=== PATIENT | female | born 1975 | race Two or more races ===

== ENCOUNTER 2016-05-12 16:43 | Emergency (ER) | payer OTHER ==
--- NOTE | ~2016-05-12 | CR72 ---
[facility] A Service of [facility] & [facility] RADIOLOGY TEXT RESULTS PATIENT: EMA LEVIN LOCATION: [facility] : 75 UNIT #: [id number] AGE: [address]: Oneil Urbina MD SEX: F ORDER DR: [id number] [facility] [address] [place], [place] [address] [id number] MR#: [id number] Acc #: [id number] NAME: EMA LEVIN : 1975 SEX: F STUDY DATE/TIME: 05/12/2016 17:00 UNIT: [facility] ROOM: STUDY DESCRIPTION: CR Chest Single View Portable Attending Physician: Giuseppe Urbina M.D. Ordering Physician: Ed Arthur Cardozo M.D. Primary Care Physician: No Primary Care Physician MEDICAL IMAGING REPORT This report is preliminary unless electronic signature is present EXAM Portable chest. HISTORY Left shoulder pain and chest pain and vomiting and cough for 3 days. FINDINGS The cardiac size and pulmonary vascularity are within normal limits. Mild linear atelectasis in the left base has developed since 05/08/2016. The left lung apex is partly excluded. No airspace infiltrates or effusions are identified. IMPRESSION No acute findings. No evidence of active disease. Dictated by... Mark Mccray M.D. THIS IS AN ELECTRONICALLY VERIFIED REPORT Mark Mccray M.D. at 05/13/2016 5:15 PM DFL/hebert TD: 05/13/2016 08:29 JOB #: [id number] MEDICAL IMAGING REPORT Page 1 of 1 COPY
--- NOTE | ~2016-05-12 | EKG ---
PATIENT: EMA LEVIN UNIT #: [id number] Ventricular Rate: 70 BPM Atrial Rate: 70 BPM P-R Interval: 164 ms QRS Duration: 74 ms Q-T Interval: 392 ms QTC Calculation(Bezet): 423 ms P Castaner: 51 degrees Calculated R Castaner: -21 degrees Calculated T Castaner: 12 degrees Diagnosis Line: Normal sinus rhythm Diagnosis Line: Low voltage QRS Diagnosis Line: Nonspecific T wave abnormality Diagnosis Line: Abnormal ECG Diagnosis Line: When compared with ECG of 25-OCT-2011 13:29, Diagnosis Line: Nonspecific T wave abnormality now evident in Diagnosis Line: Lateral leads Diagnosis Line: Confirmed by GAYATHRI BENNETT MD ([id number]) on 05/14/2016 Diagnosis Line: 10:54:54 PM INTERPRETING MD: DONALD VICENTE
[2016-05-12 14:29] LABS: URINE SOURCE CLEAN CATCH
[2016-05-12 14:37] LABS: URINE APPEARANCE CLEAR; URINE BILIRUBIN NEG (NEG); URINE BLOOD NEG (NEG); URINE COLOR YELLOW; URINE GLUCOSE NEG (NEG); URINE KETONE NEG (NEG); URINE LEUKOCYTE ESTERASE NEG (NEG); URINE NITRATE NEG (NEG); URINE PH 5.5 (5-8); URINE PROTEIN NEG (NEG)
[2016-05-12 14:48] LABS: CULTURE INDICATED? NO
[2016-05-12 15:11] LABS: POC - CKMB <1.0 ng/mL (0.0-7.9); POC - TROPONIN <0.05 ng/mL (<=0.05)
[2016-05-12 15:20] LABS: BASOPHIL# 0.1 X10e3 (0-0.3); BASOPHIL% 0.9 % (0-2.5); EOSINOPHIL# 0.1 X10e3 (0-0.7); EOSINOPHIL% 1.1 % (0.0-7.0); HEMOGLOBIN 13.3 gm/dL (12.0-16.0); LYMPHOCYTE# 1.5 X10e3 (1.0-3.5); LYMPHOCYTE% 22.1 % (17.0-45.0); MEAN CELL VOLUME 85.9 FL (83-96); MEAN CORPUSCULAR HEMOGLOBIN 27.8 PG (28-34); MEAN CORPUSCULAR HGB CONC 32.4 g/dL (30-36); MEAN PLATELET VOLUME 9.9 FL (6.5-11.5); MONOCYTE# 0.7 X10e3 (0-1.0); MONOCYTE% 9.7 % (3.0-12.0); NEUTROPHIL# 4.6 X10e3 (1.5-7.1); NEUTROPHIL% 66.2 % (40-75); RED BLOOD COUNT 4.77 X10e (3.90-5.30); RED CELL DISTRIBUTION WIDTH 14.2 % (11.0-15.5); WHITE BLOOD COUNT 6.9 X10e3 (4.0-10.5)
[2016-05-12 15:33] LABS: ALBUMIN SERUM 4.3 g/dL (3.5-5.0); BILIRUBIN, DIRECT 0.1 mg/dL (0.0-0.2); BILIRUBIN,INDIRECT 0.5 mg/dL (0.0-0.9); BILIRUBIN,TOTAL 0.6 mg/dL (0.2-2.0); BUN/CREATININE RATIO 18.33; CALCIUM SERUM 8.9 mg/dL (8.4-10.2); CREATININE SERUM 0.6 mg/dL (0.6-1.4); POTASSIUM 4.2 mmol/L (3.5-5.1); PROTEIN TOTAL SERUM 7.7 g/dL (6.0-8.3)
[2016-05-12 15:43] LABS: DIFF IND NO; PLATELET COUNT 264 X10e3 (140-420)
[~2016-05-12 16:43] MED LIST: ASPIRIN PO; BACTRIM DS TABL1 TA1 PO; CIPRO PO; CLINDAMYCIN HC300 MG PO; FLEXERIL10 MG PO; IBUPROFEN; IBUPROFEN800 MG PO; KEFLEX500 MG PO; LORTAB 5/500 TA1 TA1 PO; MEDROL PO; MEDROL4 MG/DOSE- PO; NAPROXEN PO; OMNICEF PO; ROBITUSSIN100 MG/51 PO; TYLENOL/CO12 MG/5 ML PO; ULTRAM; VICODIN PO; ZITHROMAX PO; ZYRTEC10 M2 PO; [UNRECOGNIZED DRUG - OTHER]
[2016-05-12 17:23] LABS: INFLUENZA A NEG (NEG); INFLUENZA B NEG (NEG)
[2016-05-12 18:23] LABS: POC - CKMB <1.0 ng/mL (0.0-7.9); POC - TROPONIN <0.05 ng/mL (<=0.05)
== END 2016-05-12 19:00 | disposition home or self-care (01) ==
LOC: CED 16:43
PROVIDERS: Emergency Medicine
DX: H65.01 Acute serous otitis media, right ear (principal); J00 Acute nasopharyngitis [common cold]; F17.210 Nicotine dependence, cigarettes, uncomplicated; Z88.0 Allergy status to penicillin; Z88.5 Allergy status to narcotic agent
CPT/HCPCS: 36415; 71010; 80048; 80076; 81003; 82553; 84484; 84703; 85025; 87651; 87804; 93005; 99283